=== PATIENT | female | born 1950 | race Caucasian/White ===

== ENCOUNTER 2016-12-02 01:47 | Inpatient (IN) | payer BC, OTHER ==
[~2016-12-02] VITALS: Ht 152.4 cm; Wt 82.7 kg
--- NOTE | ~2016-12-02 | OP ---
Record Of Operation [facility] [address] [place]. [address] NAME: KARLA CHAO : 54 STATUS : ADM IN [facility]#: [id number] AGE: 66 ADM/REG DATE : 12/02/16 MR#: [id number] REPORT SERV DATE: 12/04/16 DICTATED BY: MARIANO KEN DATE: 12/04/16 REPORT STATUS : Draft TRANSCRIBED BY: MODL DATE: 12/04/16 DATE OF PROCEDURE: 12/04/2016 PREOPERATIVE DIAGNOSES: Choledocholithiasis, status post ERCP, with stone extraction and gallstone pancreatitis. POSTPROCEDURE DIAGNOSES: Choledocholithiasis, status post ERCP, with stone extraction and gallstone pancreatitis. PROCEDURE: Laparoscopic cholecystectomy. COMPLICATIONS: None. IV FLUIDS: 600 mL of crystalloid. ESTIMATED BLOOD LOSS: 30 mL. FINDINGS: The patient had evidence of chronic cholecystitis with a thickened gallbladder wall and some inflammation around the gallbladder. SPECIMENS: Gallbladder and contents, which were sent for permanent pathology. PROCEDURE IN DETAIL: Preoperatively, the patient was definitively identified in the holding area. It was confirmed that a signed consent was on the chart. The patient was then transferred to the operating room and placed supine on the operating room table. After appropriate surgical pause, general endotracheal anesthesia was administered by Anesthesia team. The patient was already on systemic antibiotics. SCDs were used for DVT prophylaxis. After prepping and draping in normal sterile fashion, a supraumbilical incision was performed sharply. A Veress needle was then used to insufflate the abdomen to 15 mmHg pressure after hanging drop test confirmed correct placement. A 5 mm trocar was then placed followed by a 5 mm 30-degree scope and the abdomen was completely inspected and it was confirmed there was no intraabdominal injury. She did, however, have some extensive adhesions in the right lower quadrant from her prior surgeries. This made the rest of the surgery somewhat difficult because we had to displace our right-sided trocars a little bit superiorly. After infusion of additional local anesthetic, a 12 mm incision in the epigastrium was performed sharply. A 12-mm trocar was placed under direct visualization. Two additional 5 mm trocars had been placed in the right upper quadrant both under direct visualization after infusion of local anesthetic. The gallbladder fundus was grasped and elevated over to the liver. The infundibulum was grasped and elevated outward. The peritoneal attachments were stripped laterally and medially. The cystic artery was isolated, clipped once proximally, and then divided with Bovie electrocautery. The cystic duct was isolated and the critical view of safety was obtained. It was clipped twice proximally and once distally and then partially divided. The clips were about 0.5 mm making it all the way across, so I placed the third clip to ensure that the duct stump was completely occluded. It was then completely divided and then L-hook electrocautery was used to divide the rest of the gallbladder off the liver. Due to the inflammation, one small Record Of Operation [facility] [address] [place]. [address] NAME: KARLA CHAO : 54 STATUS : ADM IN [facility]#: [id number] AGE: 66 ADM/REG DATE : 12/02/16 MR#: [id number] REPORT SERV DATE: 12/04/16 DICTATED BY: MARIANO KEN DATE: 12/04/16 REPORT STATUS : Draft TRANSCRIBED BY: VITALIY DATE: 12/04/16 opening in the gallbladder was created and a small amount of bile spillage occurred, but no stones spilled. The gallbladder was placed in an EndoCatch bag. 1 L of irrigation was used to irrigate all the bile and confirmed hemostasis. The gallbladder was then removed through the epigastric trocar site without difficulty. The 3 upper trocars were under direct visualization and the patient were flattened out. Using a Tyson tip suction tip and a Valsalva maneuver by the anesthesiologist, the final trocar was removed and the abdomen was desufflated as much as possible. The skin of all incisions was closed with 4-0 Monocryl followed by Steri-Strips and Band-Aids. At time of this dictation, the patient remained intubated, but we anticipate extubation and transfer to the postanesthesia care unit in stable condition. RAULITON/VITALIY Mariano Ken MD / [id number] CC: MD Clifton Godfrey Jr., Chris.OMichel
--- NOTE | ~2016-12-02 | CN ---
Consultation Report [facility] [address] [place]. [address] NAME: KARLA CHAO : 54 STATUS : ADM IN PAT#: [id number] AGE: 66 ADM/REG DATE : 12/02/16 MR#: [id number] REPORT SERV DATE: 12/03/16 DICTATED BY: CHECO MIKE DATE: 12/03/16 REPORT STATUS : Draft TRANSCRIBED BY: MODJennifer DATE: 12/03/16 DATE OF CONSULTATION: 12/03/2016 HISTORY OF PRESENT ILLNESS: The patient is a 66-year-old woman, who has a long cardiac history with hypertensive cardiomyopathy, has an AICD, presented with abdominal pains for the last three weeks, associated with mild jaundice and some nausea and vomiting. This began about two weeks ago. She has seen Dr. Ken; however, due to her heart history, he was trying to do things conservatively, and she was doing fairly well up until about 24 to 48 hours ago when she began to have severe abdominal pains in the right upper quadrant associated with nausea and vomiting. No hematemesis or coffee-ground emesis. She has had dark, almost Fxwu-Xzew-fqlaove urine, and also has been having itching. She denies any trouble with hematemesis or coffee-ground emesis. She denies any trouble with melena or bright red blood from the rectum. PAST MEDICAL HISTORY: Pertinent for hypertrophic cardiomyopathy and high blood pressure. She has an AICD placed and has had a history of renal stones for which she has had one kidney removed. She also has mitral regurg, pulmonary hypertension, and hyperlipidemia. MEDICATIONS: As outlined on her home medicine sheet and also on her MAR. ALLERGIES: SHE IS ALLERGIC TO SULFA DRUGS AND ALSO HYDROCODONE AND OXYCODONE, HOWEVER, THESE WERE DONE DURING THIS EPISODE AND IT IS VERY POSSIBLE THAT THE ITCHING MAY BE DUE TO THE JAUNDICE. SOCIAL HISTORY: She does not smoke cigarettes. Drinks alcohol very very rarely. Does not use any recreational drugs. FAMILY HISTORY: Noncontributory. REVIEW OF SYSTEMS: Otherwise unremarkable. PHYSICAL EXAMINATION: GENERAL: She is a well-developed and well-nourished woman in no acute distress. VITAL SIGNS: Her temperature is 97.9, pulse 89, respirations 20, blood pressure is 98/49. HEENT: Pertinent for scleral icterus and the patient is jaundiced. LUNGS: Clear. HEART: Has a regular rate and rhythm. ABDOMEN: Showed normoactive bowel sounds, soft, with very mild tenderness in the right upper quadrant and mid epigastrium. LABORATORY DATA AND IMAGING: Shows a white count of 11.9, hemoglobin 13.0, hematocrit 39.7, RDW 14.4, platelet count 156,000. She also has a sodium of 140, potassium 3.2, chloride 103, CO2 of 25, BUN 35, creatinine 1.98, glucose 123, calcium is 9.9, total protein 8.1, albumin is 3.7, her GFR is 26. Total bilirubin is 5.7, alkaline phosphatase of 531, ALT Consultation Report [address] [place]. [address] NAME: KARLA CHAO : 54 STATUS : ADM IN [facility]#: [id number] AGE: 66 ADM/REG DATE : 12/02/16 MR#: [id number] REPORT SERV DATE: 12/03/16 DICTATED BY: CHECO MIKE DATE: 12/03/16 REPORT STATUS : Draft TRANSCRIBED BY: MODL DATE: 12/03/16 145, AST 227, and lipase is 9207. Those were the labs from admission yesterday. CT scan done, does reveal an 8 mm gallstone located very close to the sphincter of Oddi. The common bile duct measured 14 to 15 mm in diameter and there is also a small stone actually in the duodenum. The gallbladder is distended and there appears to be a small stone in the neck of the gallbladder. She also has nonobstructing calculus in the inferior pole of the left kidney, diverticulosis. Lipase is 10,099, and her hepatitis profile is negative. IMPRESSION: This is a 66-year-old woman, who has gallstone pancreatitis and has a stone in the common bile duct by CT scan, so she definitely needs an ERCP. She also needs an upper endoscopy given her abdominal pains in the midepigastrium and the nausea as that could also be from reflux as well as the pancreatitis. I have explained the risks and the benefits of the EGD and ERCP with the patient and her and they agree, and since she is feeling much better and the stones are in the bile duct, we would go ahead and do an ERCP and an upper endoscopy both this morning or early afternoon. I want to thank you for allowing me to participate in the care of this nice lady. We look forward to work with you in the future. GUY/VITALIY Checo Mike M.D. / [id number] CC: Erica Molina Jr., D.O.
--- NOTE | ~2016-12-02 | CN ---
Consultation Report [facility] [address] [place]. [address] NAME: KARLA CHAO : 54 STATUS : ADM IN [facility]#: [id number] AGE: 66 ADM/REG DATE : 12/02/16 MR#: [id number] REPORT SERV DATE: 12/04/16 DICTATED BY: MARIANO KEN DATE: 12/04/16 REPORT STATUS : Draft TRANSCRIBED BY: MODL DATE: 12/04/16 DATE OF CONSULTATION: 12/02/2016 SERVICE: General Surgery attending. RESIDENT: Mariela Mendosa MD. REASON FOR CONSULT: Choledocholithiasis and biliary pancreatitis. HISTORY OF PRESENT ILLNESS: This is a 66-year-old female with a history of cardiomyopathy and ICD placement, who has known cholelithiasis. The patient was seen by Dr. Ken two weeks ago for right upper quadrant pain. Cholecystectomy was postponed secondary to her heart history. The patient presents now with two days of worsening right upper quadrant pain as well as nausea, vomiting, fevers, and chills. She also endorses fatigue for at least the last month. Hepatitis panel was negative. Her LFTs, white count, and lipase are all elevated. Notably on CT, there is a stone in the common bile duct. Zosyn has been started at this time and this patient has been admitted by the hospitalist. PAST MEDICAL HISTORY: Hypertrophic cardiomyopathy, hypertension, hyperlipidemia, the patient has a single kidney secondary to surgical intervention for a kidney stone, and she also has a history of mitral regurgitation. PAST SURGICAL HISTORY: Septal myectomy, left knee meniscus repair, right nephrectomy, appendectomy, ICD placement. FAMILY HISTORY: Sudden cardiac secondary to hypertrophic myopathy. SOCIAL HISTORY: The patient denies alcohol, tobacco, or illicit drug use. REVIEW OF SYSTEMS: Negative except as noted in the HPI on 10-point review. Most notably, the patient denies chest pain, shortness of breath, or any palpitations in the last month. LABORATORY DATA: Sodium 140, potassium 3.2, chloride 103, CO2 of 25, BUN 35, creatinine 1.9, glucose 123. White count 11.9, hemoglobin 13, hematocrit 39, and platelets 156. Hepatitis panel is completely nonreactive. Total bilirubin 5.7, alkaline phosphatase 531, AST 227, ALT 145, lipase is 9207. PHYSICAL EXAMINATION: VITAL SIGNS: Temperature 97.6, pulse 96, respirations 18, BP 107/55, O2 saturation 96%. GENERAL: Alert and oriented x3, in no acute distress. HEENT: Normocephalic, atraumatic. Extraocular muscles are intact with mild scleral icterus. CVS: Regular rate and rhythm with a positive murmur. No gallops or rubs noted. LUNGS: Clear to auscultation bilaterally. Consultation Report [address] [place]. [address] NAME: KARLA CHAO : 54 STATUS : ADM IN PAT#: [id number] AGE: 66 ADM/REG DATE : 12/02/16 MR#: [id number] REPORT SERV DATE: 12/04/16 DICTATED BY: MARIANO KEN DATE: 12/04/16 REPORT STATUS : Draft TRANSCRIBED BY: VITALIY DATE: 12/04/16 ABDOMEN: Soft and nondistended, with mild right upper quadrant tenderness to palpation. Positive bowel sounds. EXTREMITIES: She moves all extremities well. ASSESSMENT: This is a 66-year-old female with right upper quadrant pain, nausea, vomiting, leukocytosis, and elevated liver function tests, found to have choledocholithiasis on imaging as well as biliary pancreatitis. PLAN: 1. Continue antibiotics, keep patient n.p.o. 2. GI has been consulted to evaluate and we will follow up their recommendations and plan. 3. We will discuss timing of the laparoscopic cholecystectomy with Dr. Ken. The patient will likely need preop cardiac clearance from Dr. Jolly, who is her usual credit risk modeler, prior to any surgical intervention for her gallbladder. DICTATED BY: MD NORIS Galvan/VITALIY Mariano Ken MD / [id number] CC: MD Clifton Morris Jr., D.O.
--- NOTE | ~2016-12-02 | CN ---
Consultation Report [address] [place]. [address] NAME: KARLA CHAO : 54 STATUS : ADM IN PAT#: [id number] AGE: 66 ADM/REG DATE : 12/02/16 MR#: [id number] REPORT SERV DATE: 12/02/16 DICTATED BY: ISAAK DAVILA JR. DATE: 12/02/16 REPORT STATUS : Draft TRANSCRIBED BY: MODL DATE: 12/02/16 CARDIOLOGY CONSULT DATE OF CONSULTATION: 12/02/2016 REFERRING PHYSICIAN: Bird Rondon. CONSTANTIN SELF SEALING FUEL TANK REPAIRER: Amy Jolly M.D. SURGERY: Dr. Ken. REASON FOR CONSULTATION: Regarding preoperative cardiac assessment. HISTORY OF PRESENT ILLNESS: 66-year-old white female admitted with gallstone pancreatitis. She looks fairly comfortable now ? Passed second gallstone ? Consultation is requested for preoperative cardiovascular assessment with a complicated cardiac history. Fortunately, her cardiovascular status seems quite stable now. She reports no chest pain, change in breathing, palpitations, presyncope, or syncope. Her blood pressure, which normally is high, is a bit low. She is getting intravenous fluids and has abnormalities in potassium 3.2, BUN and creatinine 35 and 1.98 respectively. Liver function test abnormalities and lipase elevation noted. EKG has not been performed yet. We will order. PAST MEDICAL HISTORY: Of a 2013 septal myectomy procedure for IHSS - obstructive - with 2016 heart block requiring an ICD insertion with normal ICD clinic followup with Dr. Guaajrdo, etc. No obstructive coronary artery disease on angiography in the past. Chronic left bundle branch block. ALLERGIES: LISTED HYDROCODONE, OXYCODONE, SULFA DRUGS, TRIMETHOPRIM. MEDICATIONS: Home medication list reviewed and includes cardiovascular drugs, Crestor, and Maxzide 25. SOCIAL HISTORY: Nonsmoker and no illicit drugs. FAMILY HISTORY: Noncontributory. PHYSICAL EXAMINATION: VITAL SIGNS: Blood pressure 192 to 107 over 55 to 60. Pulse is 106 and regular, respirations 18, afebrile. GENERAL: Comfortable appearing middle-aged white female, in no acute distress. Consultation Report [address] [place]. [address] NAME: KARLA CHAO : 54 STATUS : ADM IN PAT#: [id number] AGE: 66 ADM/REG DATE : 12/02/16 MR#: [id number] REPORT SERV DATE: 12/02/16 DICTATED BY: ISAAK DAVILA JR. DATE: 12/02/16 REPORT STATUS : Draft TRANSCRIBED BY: VITALIY DATE: 12/02/16 HEENT: No xanthelasma. NECK: No JVD at 30 degrees, no thyromegaly, no carotid bruit. LUNGS: Clear to auscultation and percussion. COR: No thrills, heaves, normal S1, S2. No gallop. No rub. Systolic murmur. ABD: Soft, nontender, no hepatosplenomegaly, no mass. EXT: Without edema or pulse deficit. MS: Back without spine or costovertebral angle tenderness. NEURO: Symmetric findings. DISCUSSION: There is no absolute cardiac contraindication to surgical procedures, etc. However, she seems fairly comfortable now and may have passed her second stone. She has a history of septal myectomy for obstructive hypertrophic cardiomyopathy in 2012 with an ICD insertion last year with normal followup in ICD Clinic. She will need usual precautions with ICD per Anesthesiology. She has a residual murmur with an ill-defined mitral valve anatomy and has a history of a PFO closure in the past as well. Hopefully, increase BUN and creatinine will respond to intravenous fluid hydration. We will check an EKG since one has not been ordered this admission yet. Thank you for this consultation. Dr. Jolly to follow with you. BRUNILDA/VITALIY Isaak Davila Jr., M.D. / [id number] CC: Erica Garcia Jr., D.O.
--- NOTE | ~2016-12-02 | EGD ---
EGD REPORT [facility] [address] [address] NAME: KARLA CARRANZA : 54 STATUS : ADM IN PAT#: [id number] AGE: 66 ADM/REG DATE : 12/02/16 MR#: [id number] REPORT SERV DATE: 12/03/16 DICTATED BY: CHECO MIKE DATE: 12/03/16 REPORT STATUS : Draft TRANSCRIBED BY: [facility] DATE: 12/03/16 Endoscopy Center Patient Name: Karla Carranza Date of : 1950 Attending MD: CHECO MIKE MD Procedure Date No Time: 12/03/2016 Procedure: Upper GI endoscopy Indications: Epigastric abdominal pain, Heartburn, Nausea with vomiting Medicines: General Anesthesia Complications: No immediate complications. Procedure: Pre-Anesthesia Assessment: - ASA Grade Assessment: III - A patient with severe systemic disease. After obtaining informed consent, the endoscope was passed under direct vision. Throughout the procedure, the patient's blood pressure, pulse, and oxygen saturations were monitored continuously. The GIF [id number] was introduced through the mouth, and advanced to the third part of duodenum. The upper GI endoscopy was accomplished without difficulty. The patient tolerated the procedure well. Findings: Non-severe esophagitis with no bleeding was found in the entire esophagus. A small hiatus hernia was present. as seen on retroflexion Diffuse mild inflammation characterized by congestion (edema) and erythema was found in the entire examined stomach. Localized mild inflammation characterized by congestion (edema) and erythema was found in the duodenal bulb. The 2nd part of the duodenum and 3rd part of the duodenum were normal. Impression: - Non-severe esophagitis. - Hiatus hernia. - Gastritis. - Duodenitis. - Normal 2nd part of the duodenum and 3rd part of the duodenum. Recommendation: - Perform an ERCP today. - Return to previous diet. - Continue present medications. - Observe patient's clinical course. - Okay for surgery. EGD REPORT [address] [address] NAME: KARLA CARRANZA : 54 STATUS : ADM IN [facility]#: [id number] AGE: 66 ADM/REG DATE : 12/02/16 MR#: [id number] REPORT SERV DATE: 12/03/16 DICTATED BY: CHECO MIKE DATE: 12/03/16 REPORT STATUS : Draft TRANSCRIBED BY: [facility] staff SERVICES DATE: 12/03/16 - Return patient to hospital [facility] for ongoing care. Procedure Code(s): --- Professional --- 11284, Esophagogastroduodenoscopy, flexible, transoral; diagnostic, including collection of specimen(s) by brushing or washing, when performed (separate procedure) Diagnosis Code(s): --- Professional --- K20.9, Esophagitis, unspecified K44.9, Diaphragmatic hernia without obstruction or gangrene K29.70, Gastritis, unspecified, without bleeding K29.80, Duodenitis without bleeding R10.13, Epigastric pain R12, Heartburn R11.2, Nausea with vomiting, unspecified CPT copyright 2013 [employer]. All rights reserved. The codes documented in this report are preliminary and upon cook fruit review may be revised to meet current compliance requirements. Checo Mike MD CHECO MIKE MD 12/03/2016 8:04 PM This report has been signed electronically. Number of Addenda: 0 Note Initiated On: 12/03/2016 6:40 PM Scope Withdrawal Time 0 hours 0 minutes 0 seconds [id number] [place] [address]
--- NOTE | ~2016-12-02 | EGD ---
EGD REPORT [facility] [address] [address] NAME: KARLA CARRANZA : 54 STATUS : ADM IN PAT#: [id number] AGE: 66 ADM/REG DATE : 12/02/16 MR#: [id number] REPORT SERV DATE: 12/03/16 DICTATED BY: CHECO MIKE DATE: 12/03/16 REPORT STATUS : Draft TRANSCRIBED BY: [facility] DATE: 12/03/16 Endoscopy Center Patient Name: Karla Carranza Date of : 1950 Attending MD: CHECO MIKE MD Procedure Date No Time: 12/03/2016 Procedure: ERCP Indications: Bile duct stone(s) Medicines: General Anesthesia Complications: No immediate complications. Procedure: After obtaining informed consent, the scope was passed under direct vision. Throughout the procedure, the patient's blood pressure, pulse, and oxygen saturations were monitored continuously. The TJF [id number] was introduced through the mouth, and advanced to the duodenum and used to cannulate the bile duct. The ERCP was accomplished without difficulty. The patient tolerated the procedure well. Findings: The major papilla was bulging. The bile duct was deeply cannulated. Contrast was injected. I personally interpreted the bile duct images. Ductal flow of contrast was adequate. Image quality was excellent. Contrast extended to the hepatic ducts. The main bile duct contained four stones, the largest of which was 8 mm in diameter. A 12 mm biliary sphincterotomy was made with a sphincterotome using ERBE electrocautery. The sphincterotomy oozed blood. The main bile duct contained four stones [Size of largest] mm. The biliary tree was swept with a 12 mm balloon starting at the upper third of the main bile duct. All stones were removed. Impression: - The major papilla appeared to be bulging. - Choledocholithiasis was found. Complete removal was accomplished by biliary sphincterotomy and balloon extraction. Recommendation: - Avoid aspirin and nonsteroidal anti-inflammatory medicines. - Observe patient's clinical course. - Can Proceed with surgery - Return patient to hospital [facility] for ongoing care. Procedure Code(s): --- Professional --- 61431, Endoscopic retrograde cholangiopancreatography (ERCP); with removal of calculi/debris from EGD REPORT [address] [address] NAME: KARLA CARRANZA : 54 STATUS : ADM IN [facility]#: [id number] AGE: 66 ADM/REG DATE : 12/02/16 MR#: [id number] REPORT SERV DATE: 12/03/16 DICTATED BY: CHECO MIKE DATE: 12/03/16 REPORT STATUS : Draft TRANSCRIBED BY: [facility] DATE: 12/03/16 biliary/pancreatic duct(s) 75583, Endoscopic retrograde cholangiopancreatography (ERCP); with sphincterotomy/papillotomy Diagnosis Code(s): --- Professional --- K83.9, Disease of biliary tract, unspecified K80.50, Calculus of bile duct without cholangitis or cholecystitis without obstruction CPT copyright 2013 [employer]. All rights reserved. The codes documented in this report are preliminary and upon steel die engraver review may be revised to meet current compliance requirements. Checo Mike MD CHECO MIKE MD 12/03/2016 8:16 PM This report has been signed electronically. Number of Addenda: 0 Note Initiated On: 12/03/2016 6:27 PM Scope Withdrawal Time 0 hours 0 minutes 0 seconds [id number] [place] [address]
--- NOTE | ~2016-12-02 | DS ---
Discharge Summary [facility] [address] [facility] [place]. [address] NAME: KARLA CARRANZA : 54 STATUS : ADM IN [facility]#: [id number] AGE: 66 ADM/REG DATE : 12/02/16 MR#: [id number] REPORT SERV DATE: 12/06/16 DICTATED BY: JOHN MAURICE DATE: 12/06/16 REPORT STATUS : Draft TRANSCRIBED BY: MODL DATE: 12/06/16 ADMISSION DATE: 12/02/2016 DISCHARGE DATE: HISTORY OF PRESENT ILLNESS: Ms. Carranza is a 66-year-old female with a history of hypertrophic cardiomyopathy, hypertension, solitary kidney, who presented to the emergency room with a complaint of nausea, abdominal pain and vomiting, and was subsequently diagnosed with gallstone pancreatitis. For further details, please refer to H and P dictated by Dr. Noble on 12/02/2016 . HOSPITAL COURSE: Upon admission, given the patient's complaints, a CT abdomen and pelvis without contrast was obtained, which noted biliary obstruction secondary to an 8 mm gallstone located in the sphincter of Oddi. Also common bile duct dilatation was noted measuring 1.4-1.5 mm. Given these findings, GI was subsequently consulted. For further details, please refer to consultation note dictated by Dr. Pittman on 12/03/2016. Also given findings consistent with cholecystitis, surgery was subsequently consulted. Please refer to H and P dictated by Dr. Ken on 12/04/2016. From the GI site, status post evaluation by GI. Given findings on CT scan, the patient was subsequently taken to the Endoscopy Suite for an ERCP. For further details please refer to ERCP report from 12/03/2016; however, briefly echo during ERCP or choledocholithiasis was found, complete removal was accomplished by biliary sphincterotomy and balloon extraction. Status post ERCP, the patient's lipase nicely trended down. The patient was also subsequently evaluated by Surgery. She was taken for a laparoscopic cholecystectomy by Dr. Ken on 12/04/2016. Status post surgery, patient was hypoxic requiring supplemental oxygen 4-5 L to maintain saturation; however, over the course of her recovery, the patient has returned to baseline without requiring any oxygen use. Also prior to all these evaluations, Cardiology was consulted, given her history of hypertrophic cardiomyopathy for clearance for surgery. Please refer to Cardiology evaluation dictated 12/02/2016. Cardiology clearance was obtained prior to Surgery. Status post surgery, patient has remained hemodynamically stable. Her hypoxia has resolved. The patient is saturating appropriately on room air. Her vitals are stable. Upon presentation, the patient of note has a solitary kidney. Her creatinine was elevated, but has progressively trended down and is currently 1.39. Given completion of management and given hemodynamic stability, the patient will be discharged home to follow with her primary care physician in five to seven days. Plan has been discussed with the patient, who voices understanding and is agreeable with this plan. DISCHARGE MEDICATIONS: The patient's home medications were continued without any new additions. IMAGING: CT abdomen and pelvis without contrast on 12/02/2016, impression biliary obstruction secondary to 8 mm gallstone located in the sphincter of Oddi. The common bile duct measures 14-15 mm in diameter. There is a tiny stone distally in the duodenum consistent with a recently passed stone. There is a small stone in the neck of the gallbladder. The gallbladder is mildly distended. For further details, please refer to full study report ERCP performed on 12/03/2016. Please refer to study report for further details. Discharge Summary [address] [address] NAME: KARLA CARRANZA : 54 STATUS : ADM IN [facility]#: [id number] AGE: 66 ADM/REG DATE : 12/02/16 MR#: [id number] REPORT SERV DATE: 12/06/16 DICTATED BY: JOHN MAURICE DATE: 12/06/16 REPORT STATUS : Draft TRANSCRIBED BY: VITALIY DATE: 12/06/16 PROCEDURES: ERCP, performed on 12/03/2016. Cholecystectomy performed on 12/04/2016. Please refer to operative note for further details. DISPOSITION: The patient will be discharged to home. ACTIVITY: As tolerated. DIET: Regular diet greater than 30 minutes was spent on dictation of note, medication reconciliation providing counseling, general discharging patient. EVERT/VITALIY John Maurice MD / [id number] CC: MD Clifton Godfrey Jr., D.O.
--- NOTE | ~2016-12-02 | HP ---
History And Physical [id number] [place]. [address] NAME: KARLA CHAO : 54 STATUS : ADM IN [facility]#: [id number] AGE: 66 ADM/REG DATE : 12/02/16 MR#: [id number] REPORT SERV DATE: 12/02/16 DICTATED BY: LATASHA SWANSON DATE: 12/02/16 REPORT STATUS : Draft TRANSCRIBED BY: MODL DATE: 12/02/16 DATE OF ADMISSION: 12/02/2016 CHIEF COMPLAINT: Nausea, abdominal pain, and vomiting. HISTORY OF PRESENT ILLNESS: The patient is a 66-year-old female with past medical history of hypertrophic cardiomyopathy, hypertension, pacer due to heart block, additionally solitary kidney after surgical removal at age 21 from renal stones, who presents today after having abdominal pain, vomiting initially happening by yesterday about 4 hours and then continued today, has been intermittent, moderate severity, having right-sided pressure back felt like gallstone, had tried to contact her surgeon, Dr. Ken, as they were initially planning for surgical removal of gallbladder, but due to cardiac history continued conservative management as the patient was doing well up until last 24 hours. The patient had nausea, vomiting, and able to tolerate p.o., mild shortness of breath, although the patient has had a kind of on and off p.o. intake, had a subjective fever, but not documented. No diarrhea or weakness currently. Symptoms were slightly worsened with food and palpation. No relieving symptoms. The patient was concerned that was having gall stone attack. REVIEW OF SYSTEMS: CONSTITUTIONAL: Noted for subjective fevers, but no chills. EYES: No visual pain or changes. ENT: Does have mild jaundice or yellowing of skin. No sinus drainage. NEURO: No headache or confusion. SKIN: Yellowing of skin. No rashes. RESPIRATORY: No shortness of breath or dyspnea on exertion. CV: No chest pain or palpitations. GI: Noted for nausea, vomiting, and abdominal pain. No diarrhea or constipation. : No dysuria or hematuria. MUSCULOSKELETAL: No myalgias, arthralgias above baseline. ENDO: No fatigue or polyuria. HEME: No bleeding or bruising. IMMUNOLOGIC: No rhinorrhea. PSYCH: No anxiety or confusion. PAST MEDICAL HISTORY: 1. Hypertension. 2. Hypertrophic cardiomyopathy. 3. Pacer secondary to cardiac block and resultant syncope. 4. Solitary kidney secondary to kidney stones at age 21 with right kidney removal. 5. Mitral regurg. 6. Pulmonary hypertension. 7. Hypertension. 8. Hyperlipidemia. SURGICAL HISTORY: History And Physical [address] [place]. [address] NAME: KARLA CHAO : 54 STATUS : ADM IN PAT#: [id number] AGE: 66 ADM/REG DATE : 12/02/16 MR#: [id number] REPORT SERV DATE: 12/02/16 DICTATED BY: LATASHA SWANSON DATE: 12/02/16 REPORT STATUS : Draft TRANSCRIBED BY: MODL DATE: 12/02/16 1. Septal myomectomy at [facility] in November 2015. 2. Surgical removal of kidney at age 21. 3. Appendectomy. SOCIAL HISTORY: No smoking, alcohol, or illicits. , accompanied by at bedside. FAMILY HISTORY: Noted for sudden cardiac and hypertrophic cardiomyopathy. ALLERGIES: TO SULFA, RECENT HYDROCODONE AND OXYCODONE WITH ITCHING DURING ACUTE EPISODE, HAS ACTUALLY TOLERATED THIS IN THE PAST, ONLY KNOWN RECENT ALLERGY. HOME MEDICATIONS: 1. Zyrtec. 2. Vitamin D. 3. CoQ10. 4. B12. 5. Benadryl. 6. Motrin. 7. Crestor. 8. Maxzide. PHYSICAL EXAMINATION: VITAL SIGNS: The patient's blood pressure 133/80, temperature 99, pulse 106 to 115, respirations 18, and O2 saturations 95% on room air. GENERAL: No acute distress currently after pain medications, well developed, well nourished. EYES: Jaundiced, but EOMI. ENT: Nares patent. Tongue midline. RESPIRATORY: Clear to auscultation. No wheezes or rales. CV: Mildly tachycardic, but no rubs or gallops. GI: Epigastric tenderness to palpation. Does have vides holosystolic murmur. No rubs. No gallops. : Deferred. MUSCULOSKELETAL: Moves all extremities x4. SKIN: Jaundiced. HEME: No bleeding or bruising. LYMPH: No edema. NEURO: Alert and oriented. Moves all extremities x4. PSYCH: Appropriate mood and affect. LABORATORY DATA: CMP: Potassium 3.2, BUN and creatinine 35 and 1.98, alkaline phosphatase 531, lipase of 9207. AST and ALT 227 and 145. CBC: WBC count 11.9, H and H 13 and 39.7, and platelets 156. Hepatitis profile, negative. History And Physical [address] [address] NAME: KARLA CHAO : 54 STATUS : ADM IN PAT#: [id number] AGE: 66 ADM/REG DATE : 12/02/16 MR#: [id number] REPORT SERV DATE: 12/02/16 DICTATED BY: LATASHA SWANSON DATE: 12/02/16 REPORT STATUS : Draft TRANSCRIBED BY: MODL DATE: 12/02/16 CT initial read, no acute findings, mild cholelithiasis, gallbladder mildly dilated. Followup from read by Dr. Fulton noted for possible common bile duct stone approximately 5 to 15 mm and stone in duodenum. ASSESSMENT AND PLAN: 1. Gallstone pancreatitis with likely choledocholithiasis. 2. Acute kidney injury. 3. Hypokalemia. 4. Hypertrophic cardiomyopathy with left bundle-branch block. 5. Pulmonary hypertension. PLAN: 1. For gallstone pancreatitis with likely choledocholithiasis, CT performed. Official report by Dr. Fulton is still pending. Does have increased bilirubin, increased lipase. IV fluids. Pain control. Notify Surgery, Dr. Ken, who has been following in clinic. We will also consult GI family development extension specialist. If procedure required we will need cardiac clearance due to extensive cardiac history. 2. RANDY. IV fluids. Treat #1. 3. Does have solitary kidney with absent right secondary to kidney stones at age 21. 4. Hypokalemia, replace per protocol. 5. Hypertrophic cardiomyopathy with left bundle-branch block, and complete heart block with AICD, sees Dr. Jolly. EF of 55 to 60%. IV fluids as tolerated. Serially monitor fluid balance with hypertrophic cardiomyopathy left bundle-branch block history. DISPOSITION: Pending clinical treatment from above. DDN/MODL Latasha Swanson MD / [id number] CC: Erica Molina Jr., D.O.
[~2016-12-02 01:47] MED LIST: BEN25 PO; CLARIT10 PO; COQ-10200 MG OR; CRESTOR10 PO; CYANO1000T PO; FISH-EPA1000 MG PO; HCTZ PO; IBU800 PO; LOP25 PO; MAX25 PO; MULTIPLE VIT PO; TRIAM PO; ULTRAM50 PO; VITAMIN B-121000 MC1 SL; VITAMIN D1000 UNI1 PO; ZYRTEC ALLGY10 MG PO
[2016-12-02 03:28] LABS: BASOPHILS 0.1 %; BASOPHILS ABSOLUTE 0.01 10/3/uL (0.0-0.16); EOSINOPHILS 0.1 %; EOSINOPHILS ABSOLUTE 0.01 10/3/uL (0.0-0.53); HEMATOCRIT 39.7 % (36.0-48.0); IMMATURE GRANULOCYTES 0.3 %; IMMATURE GRANULOCYTES ABSOLUTE 0.03 10/3/uL (0.0-0.11); LYMPHOCYTES 1.8 %; LYMPHOCYTES ABSOLUTE 0.22 10/3/uL (0.67-4.30); MEAN CORPUS HGB CONC 32.7 g/dL (32.0-36.0); MEAN CORPUSCULAR HEMOGLOB 27.5 pg (26.0-34.0); MEAN CORPUSCULAR VOLUME 83.9 fL (80-100); MEAN PLATELET VOLUME 9.6 fL (9.2-13.0); MONOCYTES 0.6 %; MONOCYTES ABSOLUTE 0.07 10/3/uL (0.21-1.20); NEUTROPHILS 97.1 %; NEUTROPHILS ABSOLUTE 11.59 10/3/uL (2.02-8.40); PLATELET COUNT 156 10/3/uL (150-400); RBC DISTRIBUTION WIDTH 14.4 % (12.0-16.0); RED CELL COUNT 4.73 10/6/uL (4.0-5.6); WHITE BLOOD CELLS 11.9 10/3/uL (4.5-10.5)
[2016-12-02 03:32] LABS: ER CBC TAT 0 Hrs 03 MinsNP; MANUAL DIFF NO %
[2016-12-02 03:45] LABS: A/G RATIO 0.8 (0.7-1.9); ALBUMIN 3.7 G/DL (3.5-5.0); ALKALINE PHOSPHATASE 531 U/L (45-117); BUN (BLOOD UREA NITROGEN) 35 MG/DL (6-23); CALCIUM, SERUM 9.9 MG/DL (8.5-10.4); CHLORIDE, SERUM 103 MMOL/L (96-112); CO2 (CARBON DIOXIDE) 25 MMOL/L (24-34); CREATININE 1.98 MG/DL (0.55-1.02); GFR AFRICAN AMERICAN 30 ML/MIN (>=60); GFR NON AFRICAN AMERICAN 26 ML/MIN (>=60); GLOBULIN 4.4 G/DL (2.5-4.1); GLUCOSE, SERUM 123 MG/DL (60-99); POTASSIUM, SERUM 3.2 MMOL/L (3.5-5.3); SGOT(AST) 227 U/L (5-40); SGPT(ALT) 145 U/L (5-65); SODIUM, SERUM 140 MMOL/L (135-148); TOTAL BILIRUBIN 5.7 MG/DL (0-1.2); TOTAL PROTEIN 8.1 G/DL (6.0-8.5)
[2016-12-02] MEDS ORDERED: CO Q-10100 MG (05:55)
[2016-12-02 13:30] LABS: ASCORBIC ACID (UR NOT ORDER) NEG (NEG); BILIRUBIN, URINE SMALL (NEG); KETONE, URINE NEGATIVE (NEG); LEUKOCYTE ESTERASE(NOT OR NEG (NEG); WBC (NOT ORDERED) (RFLEX) 1 (0-5)
[2016-12-03 06:30] LABS: BASOPHILS 0.1 %; BASOPHILS ABSOLUTE 0.01 10/3/uL (0.0-0.16); EOSINOPHILS 0.8 %; EOSINOPHILS ABSOLUTE 0.09 10/3/uL (0.0-0.53); HEMATOCRIT 31.5 % (36.0-48.0); IMMATURE GRANULOCYTES 0.4 %; IMMATURE GRANULOCYTES ABSOLUTE 0.04 10/3/uL (0.0-0.11); LYMPHOCYTES 8.4 %; LYMPHOCYTES ABSOLUTE 0.91 10/3/uL (0.67-4.30); MANUAL DIFF NO %; MEAN CORPUS HGB CONC 31.7 g/dL (32.0-36.0); MEAN CORPUSCULAR HEMOGLOB 27.5 pg (26.0-34.0); MEAN CORPUSCULAR VOLUME 86.8 fL (80-100); MEAN PLATELET VOLUME 10.1 fL (9.2-13.0); MONOCYTES 5.9 %; MONOCYTES ABSOLUTE 0.64 10/3/uL (0.21-1.20); NEUTROPHILS 84.4 %; PLATELET COUNT 126 10/3/uL (150-400); RED CELL COUNT 3.63 10/6/uL (4.0-5.6); WHITE BLOOD CELLS 10.8 10/3/uL (4.5-10.5)
[2016-12-03 08:34] LABS: CHLORIDE, SERUM 110 MMOL/L (96-112); CREATININE 1.95 MG/DL (0.55-1.02); GFR AFRICAN AMERICAN 31 ML/MIN (>=60); GFR NON AFRICAN AMERICAN 27 ML/MIN (>=60); POTASSIUM, SERUM 3.6 MMOL/L (3.5-5.3); SGOT(AST) 83 U/L (5-40); SGPT(ALT) 74 U/L (5-65); SODIUM, SERUM 140 MMOL/L (135-148)
[2016-12-03 08:35] LABS: A/G RATIO 0.7 (0.7-1.9); ALBUMIN 2.5 G/DL (3.5-5.0); ALKALINE PHOSPHATASE 362 U/L (45-117); CALCIUM, SERUM 8.1 MG/DL (8.5-10.4); CO2 (CARBON DIOXIDE) 18 MMOL/L (24-34); GLOBULIN 3.7 G/DL (2.5-4.1); GLUCOSE, SERUM 67 MG/DL (60-99); TOTAL BILIRUBIN 4.2 MG/DL (0-1.2); TOTAL PROTEIN 6.2 G/DL (6.0-8.5)
[2016-12-03 08:47] LABS: BUN (BLOOD UREA NITROGEN) 40 MG/DL (6-23)
[2016-12-04 06:05] LABS: A/G RATIO 0.6 (0.7-1.9); ALBUMIN 2.2 G/DL (3.5-5.0); ALKALINE PHOSPHATASE 322 U/L (45-117); BUN (BLOOD UREA NITROGEN) 36 MG/DL (6-23); CALCIUM, SERUM 8.1 MG/DL (8.5-10.4); CHLORIDE, SERUM 113 MMOL/L (96-112); CO2 (CARBON DIOXIDE) 18 MMOL/L (24-34); CREATININE 1.62 MG/DL (0.55-1.02); GFR AFRICAN AMERICAN 38 ML/MIN (>=60); GFR NON AFRICAN AMERICAN 33 ML/MIN (>=60); GLOBULIN 3.6 G/DL (2.5-4.1); GLUCOSE, SERUM 82 MG/DL (60-99); POTASSIUM, SERUM 3.5 MMOL/L (3.5-5.3); SGPT(ALT) 57 U/L (5-65); SODIUM, SERUM 143 MMOL/L (135-148); TOTAL BILIRUBIN 1.9 MG/DL (0-1.2); TOTAL PROTEIN 5.8 G/DL (6.0-8.5)
[2016-12-04 06:06] LABS: SGOT(AST) 61 U/L (5-40)
[2016-12-04 07:27] LABS: BASOPHILS 0.1 %; BASOPHILS ABSOLUTE 0.01 10/3/uL (0.0-0.16); EOSINOPHILS 0.7 %; EOSINOPHILS ABSOLUTE 0.05 10/3/uL (0.0-0.53); HEMATOCRIT 28.2 % (36.0-48.0); HEMOGLOBIN 9.1 g/dL (12.0-16.0); IMMATURE GRANULOCYTES 0.4 %; IMMATURE GRANULOCYTES ABSOLUTE 0.03 10/3/uL (0.0-0.11); LYMPHOCYTES 12.6 %; LYMPHOCYTES ABSOLUTE 0.97 10/3/uL (0.67-4.30); MANUAL DIFF NO %; MEAN CORPUS HGB CONC 32.3 g/dL (32.0-36.0); MEAN CORPUSCULAR HEMOGLOB 27.4 pg (26.0-34.0); MEAN CORPUSCULAR VOLUME 84.9 fL (80-100); MEAN PLATELET VOLUME 10.3 fL (9.2-13.0); MONOCYTES 7.2 %; MONOCYTES ABSOLUTE 0.55 10/3/uL (0.21-1.20); NEUTROPHILS ABSOLUTE 6.06 10/3/uL (2.02-8.40); PLATELET COUNT 136 10/3/uL (150-400); RBC DISTRIBUTION WIDTH 15.3 % (12.0-16.0); RED CELL COUNT 3.32 10/6/uL (4.0-5.6); WHITE BLOOD CELLS 7.7 10/3/uL (4.5-10.5)
[2016-12-04 07:44] LABS: PLATELET ESTIMATE SLT DEC (ADEQUATE)
[2016-12-04 07:45] LABS: POLYCHROMASIA 1+ (2-5/OIF) (0-1/OIF)
[2016-12-05 06:20] LABS: BASOPHILS 0.1 %; BASOPHILS ABSOLUTE 0.01 10/3/uL (0.0-0.16); EOSINOPHILS 0.1 %; EOSINOPHILS ABSOLUTE 0.01 10/3/uL (0.0-0.53); HEMATOCRIT 29.7 % (36.0-48.0); HEMOGLOBIN 9.6 g/dL (12.0-16.0); IMMATURE GRANULOCYTES 0.6 %; IMMATURE GRANULOCYTES ABSOLUTE 0.06 10/3/uL (0.0-0.11); LYMPHOCYTES 5.9 %; LYMPHOCYTES ABSOLUTE 0.58 10/3/uL (0.67-4.30); MEAN CORPUS HGB CONC 32.3 g/dL (32.0-36.0); MEAN CORPUSCULAR HEMOGLOB 27.1 pg (26.0-34.0); MEAN CORPUSCULAR VOLUME 83.9 fL (80-100); MEAN PLATELET VOLUME 9.9 fL (9.2-13.0); MONOCYTES 6.4 %; MONOCYTES ABSOLUTE 0.62 10/3/uL (0.21-1.20); NEUTROPHILS 86.9 %; NEUTROPHILS ABSOLUTE 8.48 10/3/uL (2.02-8.40); PLATELET COUNT 170 10/3/uL (150-400); RBC DISTRIBUTION WIDTH 15.8 % (12.0-16.0); RED CELL COUNT 3.54 10/6/uL (4.0-5.6); WHITE BLOOD CELLS 9.8 10/3/uL (4.5-10.5)
[2016-12-05 06:25] LABS: MANUAL DIFF NO %
[2016-12-05 06:32] LABS: A/G RATIO 0.6 (0.7-1.9); ALBUMIN 2.4 G/DL (3.5-5.0); ALKALINE PHOSPHATASE 332 U/L (45-117); CALCIUM, SERUM 8.5 MG/DL (8.5-10.4); CHLORIDE, SERUM 112 MMOL/L (96-112); CO2 (CARBON DIOXIDE) 19 MMOL/L (24-34); CREATININE 1.47 MG/DL (0.55-1.02); GFR AFRICAN AMERICAN 43 ML/MIN (>=60); GFR NON AFRICAN AMERICAN 37 ML/MIN (>=60); GLOBULIN 4.1 G/DL (2.5-4.1); POTASSIUM, SERUM 3.8 MMOL/L (3.5-5.3); SGOT(AST) 51 U/L (5-40); SGPT(ALT) 51 U/L (5-65); SODIUM, SERUM 143 MMOL/L (135-148); TOTAL BILIRUBIN 1.8 MG/DL (0-1.2); TOTAL PROTEIN 6.5 G/DL (6.0-8.5)
[2016-12-05 06:33] LABS: BUN (BLOOD UREA NITROGEN) 30 MG/DL (6-23); GLUCOSE, SERUM 107 MG/DL (60-99)
[2016-12-06 04:55] LABS: BASOPHILS 0.1 %; BASOPHILS ABSOLUTE 0.01 10/3/uL (0.0-0.16); EOSINOPHILS 1.8 %; EOSINOPHILS ABSOLUTE 0.14 10/3/uL (0.0-0.53); HEMATOCRIT 29.1 % (36.0-48.0); HEMOGLOBIN 9.5 g/dL (12.0-16.0); IMMATURE GRANULOCYTES 1.9 %; IMMATURE GRANULOCYTES ABSOLUTE 0.15 10/3/uL (0.0-0.11); LYMPHOCYTES ABSOLUTE 1.64 10/3/uL (0.67-4.30); MEAN CORPUS HGB CONC 32.6 g/dL (32.0-36.0); MEAN CORPUSCULAR HEMOGLOB 27.5 pg (26.0-34.0); MEAN CORPUSCULAR VOLUME 84.3 fL (80-100); MEAN PLATELET VOLUME 9.8 fL (9.2-13.0); MONOCYTES ABSOLUTE 0.78 10/3/uL (0.21-1.20); NEUTROPHILS 65.2 %; NEUTROPHILS ABSOLUTE 5.08 10/3/uL (2.02-8.40); PLATELET COUNT 199 10/3/uL (150-400); RBC DISTRIBUTION WIDTH 15.8 % (12.0-16.0); RED CELL COUNT 3.45 10/6/uL (4.0-5.6); WHITE BLOOD CELLS 7.8 10/3/uL (4.5-10.5)
[2016-12-06 04:56] LABS: MANUAL DIFF NO %
[2016-12-06 05:10] LABS: A/G RATIO 0.6 (0.7-1.9); ALBUMIN 2.4 G/DL (3.5-5.0); ALKALINE PHOSPHATASE 289 U/L (45-117); BUN (BLOOD UREA NITROGEN) 28 MG/DL (6-23); CALCIUM, SERUM 8.7 MG/DL (8.5-10.4); CHLORIDE, SERUM 111 MMOL/L (96-112); CO2 (CARBON DIOXIDE) 24 MMOL/L (24-34); CREATININE 1.39 MG/DL (0.55-1.02); GFR AFRICAN AMERICAN 46 ML/MIN (>=60); GFR NON AFRICAN AMERICAN 40 ML/MIN (>=60); GLOBULIN 3.8 G/DL (2.5-4.1); GLUCOSE, SERUM 81 MG/DL (60-99); POTASSIUM, SERUM 3.4 MMOL/L (3.5-5.3); SGOT(AST) 41 U/L (5-40); SGPT(ALT) 39 U/L (5-65); SODIUM, SERUM 146 MMOL/L (135-148); TOTAL BILIRUBIN 1.3 MG/DL (0-1.2); TOTAL PROTEIN 6.2 G/DL (6.0-8.5)
== END 2016-12-06 12:38 | disposition home or self-care (01) | DRG 418 ==
LOC: ER 01:47 → 2SO 05:56
PROVIDERS: Hospitalist; Internal Medicine; Internal Medicine Cardiovascular Disease; Internal Medicine Gastroenterology; Specialist
PROC: 0DJ08ZZ Inspection of Upper Intestinal Tract, Via Natural or Artificial Opening Endoscopic (ICD-10-PCS; 2016-12-03)
PROC: 0FC98ZZ Extirpation of Matter from Common Bile Duct, Via Natural or Artificial Opening Endoscopic (ICD-10-PCS; principal; 2016-12-03 18:41)
PROC: 0F798ZZ Dilation of Common Bile Duct, Via Natural or Artificial Opening Endoscopic (ICD-10-PCS; 2016-12-03 18:41)
PROC: 0FT44ZZ Resection of Gallbladder, Percutaneous Endoscopic Approach (ICD-10-PCS; 2016-12-04)
DX: K85.10 Biliary acute pancreatitis without necrosis or infection (principal); N17.9 Acute kidney failure, unspecified; I42.1 Obstructive hypertrophic cardiomyopathy; I11.9 Hypertensive heart disease without heart failure; I27.2 Other secondary pulmonary hypertension; K80.45 Calculus of bile duct with chronic cholecystitis with obstruction; I44.7 Left bundle-branch block, unspecified; K29.70 Gastritis, unspecified, without bleeding; K29.80 Duodenitis without bleeding; K44.9 Diaphragmatic hernia without obstruction or gangrene; I34.0 Nonrheumatic mitral (valve) insufficiency; E78.5 Hyperlipidemia, unspecified; E87.6 Hypokalemia; N20.0 Calculus of kidney; K57.30 Diverticulosis of large intestine without perforation or abscess without bleeding; R09.02 Hypoxemia; Z88.5 Allergy status to narcotic agent; Z88.2 Allergy status to sulfonamides; Z88.8 Allergy status to other drugs, medicaments and biological substances; Z95.810 Presence of automatic (implantable) cardiac defibrillator
CPT/HCPCS: 71020; 74176; 74330; 80053; 81001; 82150; 83690; 85025; 88304; 93005; 96374; 99285; A9270-GY; C1769; J0330; J1170; J1610; J2250; J2370; J2405; J2543; J2710; J3010; Q9967